=== PATIENT | male | born 1995 | race Caucasian/White ===

== ENCOUNTER → 2019-06-11 15:41 | Outpatient (CLI) | payer OTHER, SELFPAY ==
[2019-06-11 15:22] VITALS: BMI 29.0
--- NOTE | 2019-06-11 15:44 | RAD_ITS ---
STUDY: X-RAY - RIGHT KNEE REASON FOR EXAM: Male, 23 years old. WORK INJURY 200# RAMP FELL ON LEG, PAIN RIGHT KNEE TECHNIQUE: 3 view(s) of the knee. COMPARISON: None. FINDINGS: Normal visualized distal femur. Normal visualized proximal tibia and fibula. Normal proximal tibiofibular articulation. Normal medial femorotibial compartment. Normal lateral femorotibial compartment. Normal patellofemoral articulation. The soft tissue structures are unremarkable. RAD/Knee 3 Views IMPRESSION: Normal x-ray examination of the knee. Electronically Signed: David William, at 16:02 EST , Service support ,
== END ==
PROVIDERS: Referring Provider Physician Assistant Surgical; Visit Provider Physician Assistant Surgical
DX: S80.01XA Contusion of right knee, initial encounter (principal)
CPT/HCPCS: 73562